=== PATIENT | male | born 1970 | race American Indian/Alaskan Native ===

== ENCOUNTER 2021-01-21 22:09 | Emergency (ER) | payer SELFPAY ==
[~2021-01-21] VITALS: Ht 170.2 cm; Wt 81.6 kg
[2021-01-22] MEDS ORDERED: LIDODERM1 EACH TOP (03:42)
[2021-01-22] MEDS ORDERED: HYDROCODON-ACE1 EA13 PO (03:42)
[2021-01-22] MEDS ORDERED: STOOL SOFTENER250 MG PO (03:42)
[2021-01-22] MEDS ORDERED: LEVOFLOXACIN500 MG PO (05:10)
== END 2021-01-22 05:58 | disposition home or self-care (01) ==
LOC: ED 22:09
DX: S22.32XA Fracture of one rib, left side, initial encounter for closed fracture (principal); W22.8XXA Striking against or struck by other objects, initial encounter; E11.9 Type 2 diabetes mellitus without complications; F17.200 Nicotine dependence, unspecified, uncomplicated; Z88.8 Allergy status to other drugs, medicaments and biological substances; Z88.5 Allergy status to narcotic agent; Z88.6 Allergy status to analgesic agent
CPT/HCPCS: 71100; 74177; 76870; 80053; 81001; 83605; 85025; 96375; 99284-25; A9270; J0696; J2270; J2405; Q9967

== ENCOUNTER 2021-01-24 01:06 | Emergency (ER) | payer SELFPAY ==
[~2021-01-24] VITALS: Ht 170.2 cm; Wt 81.6 kg
[~2021-01-24 01:06] MED LIST: HYDROCODON-ACE1 EA13 PO; LEVOFLOXACIN500 MG PO; LIDODERM1 EACH TOP; STOOL SOFTENER250 MG PO
--- OUTSIDE RECORDS SUMMARY | 2021-01-24 01:08 | XMS ---
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 Jarvis VISIT COUNT (12 MO.) 1 [facility] 2 THERESE Szymanski TOTAL 3 NOTE: Visits indicate total known visits. ED/UCC VISIT TRACKING (12 MO.) 01/24/2021 01:07 [facility] [place] TYPE: Emergency COMPLAINT: - RT SIDE PAIN 01/21/2021 22:10 [facility] [place] TYPE: Emergency COMPLAINT: - POSSIBLE INJURED RIBS [facility] DIAGNOSES: 99532. TESTICAL PAIN STARTED SATURDAY @5AM 20797. Balanitis INPATIENT VISIT TRACKING (12 MO.) No inpatient visits to display in this time frame [email or web address]
[2021-01-24] MEDS ORDERED: CIPRO500 MG PO (02:36)
[2021-01-24] MEDS ORDERED: HYDROCODON-ACE1 EA10 PO (02:36)
== END 2021-01-24 02:58 | disposition home or self-care (01) ==
LOC: ED 01:06
DX: S22.32XD Fracture of one rib, left side, subsequent encounter for fracture with routine healing (principal); N45.2 Orchitis; E11.9 Type 2 diabetes mellitus without complications; F17.200 Nicotine dependence, unspecified, uncomplicated; Z88.8 Allergy status to other drugs, medicaments and biological substances; Z88.5 Allergy status to narcotic agent; Z88.6 Allergy status to analgesic agent; Z79.899 Other long term (current) drug therapy
CPT/HCPCS: 71045; 76870; 99284-25

== ENCOUNTER 2021-07-12 16:15 | Emergency (ER) | payer SELFPAY ==
[~2021-07-12] VITALS: Ht 170.2 cm; Wt 81.7 kg
[~2021-07-12 16:15] MED LIST changes: +CIPRO500 MG PO; +HYDROCODON-ACE1 EA10 PO
--- OUTSIDE RECORDS SUMMARY | 2021-07-12 16:18 | XMS ---
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 Jarvis VISIT COUNT (12 MO.) 1 [place] [address] THERESE Szymanski TOTAL 4 NOTE: Visits indicate total known visits. 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 - Allergy status to other drugs, medicaments and biological substances - Fracture of one rib, left side, initial encounter for closed fracture 01/21/2021 22:10 [facility] [place] TYPE: Emergency COMPLAINT: - POSSIBLE INJURED RIBS DIAGNOSES: - Allergy status to analgesic agent - Type 2 diabetes mellitus without complications - Nicotine dependence, unspecified, uncomplicated - Allergy status to other drugs, medicaments and biological substances - Allergy status to narcotic agent - Striking against or struck by other objects, initial encounter - Fracture of one rib, left side, initial encounter for closed fracture [facility] DIAGNOSES: 66406. TESTICAL PAIN STARTED SATURDAY @5AM 40913. Balanitis INPATIENT VISIT TRACKING (12 MO.) No inpatient visits to display in this time frame [email or web address]
== END 2021-07-12 21:18 | disposition home or self-care (01) ==
LOC: ED 16:15
DX: J02.9 Acute pharyngitis, unspecified (principal); R06.00 Dyspnea, unspecified; R50.9 Fever, unspecified; R05 Cough; R11.0 Nausea; M79.10 Myalgia, unspecified site; E11.9 Type 2 diabetes mellitus without complications; F17.200 Nicotine dependence, unspecified, uncomplicated; M54.9 Dorsalgia, unspecified; Z20.822 Contact with and (suspected) exposure to COVID-19; Z88.5 Allergy status to narcotic agent; Z88.8 Allergy status to other drugs, medicaments and biological substances; Z88.6 Allergy status to analgesic agent; Z91.018 Allergy to other foods; Z91.09 Other allergy status, other than to drugs and biological substances
CPT/HCPCS: 71045; 80048; 83735; 85025; 93005; 93010; 99284-25; C9803; U0003

== ENCOUNTER 2022-01-16 20:49 | Emergency (ER) | payer OTHER ==
[~2022-01-16] VITALS: Ht 170.2 cm; Wt 70.0 kg
[2022-01-17] MEDS ORDERED: DOXYCYCLINE HY100 MG PO (01:20)
[2022-01-17] MEDS ORDERED: ULTRAM50 MG PO (01:20)
== END 2022-01-17 01:35 | disposition home or self-care (01) ==
LOC: ED 20:49
DX: R07.81 Pleurodynia (principal); L02.31 Cutaneous abscess of buttock; E11.9 Type 2 diabetes mellitus without complications; F17.200 Nicotine dependence, unspecified, uncomplicated; Z88.5 Allergy status to narcotic agent; Z88.6 Allergy status to analgesic agent; Z88.8 Allergy status to other drugs, medicaments and biological substances
CPT/HCPCS: 71046; 99283-25